=== PATIENT | female | born 1935 | race Caucasian/White ===

== ENCOUNTER 2019-11-09 16:51 | Observation (INO) | payer MEDICARE, OTHER ==
[2019-11-09] MEDS ORDERED: Dexamethasone 10 MG/ML VIAL ONE (17:24)
--- NOTE | 2019-11-09 17:55 | RAD ---
XR Knee Rt 4 View STANDARD History: Knee pain Comparison: Radiograph August 2018 Findings: Moderate to large joint effusion, similar. No acute displaced fracture or malalignment. Hig h-grade medial compartment degenerative change with sclerosis, osteophyte formation and joint space narrowing. Moderate lateral and patellofemoral compartment degenerative changes. Multiple soft tissue calcifications around the knee. Impression: Moderate joint effusion without acute displaced fracture or malalignment may be reactive from the degenerative change.
--- NOTE | 2019-11-09 17:56 | RAD ---
XR Knee Lt 4 View STANDARD History: Pain Comparison: None. Findings: Severe medial compartment degenerative change with sclerosis and articular surface remodeli ng. Mild chondrocalcinosis of the menisci. No significant joint effusion. Extensive vascular calcifications. Impression: Severe medial compartment degenerative change. Nonemergent arthroplasty evaluation recomm ended.
--- NOTE | 2019-11-09 17:58 | RAD ---
XR Pelvis AP STANDARD History: Pain Comparison: None. Findings: SI joints are not widened. The femoral heads and necks are intact as well as the intertroch anteric regions. Obturator rings are intact. Moderate degenerative change lower lumbar spine. 4 mm round calcification projecting over the right lower quadrant of the abdomen may reflect a phlebo lith. Impression: No acute osseous abnormality.
[2019-11-09] MEDS ORDERED: HYDROcodone/Acetaminophen 5/325 mg Tablet ONE (18:51)
[2019-11-09] MEDS ORDERED: Lorazepam 1 MG TAB ONE (19:16)
[2019-11-09] MEDS ORDERED: Lorazepam 2 MG/ML VIAL ONE (19:31)
[2019-11-09] MEDS ORDERED: HYDROcodone/Acetaminophen 7.5/325 mg Tablet PO PRN (20:25)
[2019-11-09 20:53] LABS: #Eosinphils 0.1 thou/uL (0.0-0.7); #Lymphocytes 0.5 thou/uL (1.20-3.40); #Monocytes 0.2 thou/uL (0.11-0.59); #Neutrophils 8.2 thou/uL (1.40-6.50); %Basophils 0.4 % (0.0-1.0); %Eosinophils 0.9 % (0.0-10.0); %Lymphocytes 5.5 % (21.0-51.0); %Neutrophils 91.2 % (42.0-75.0); Hemoglobin 12.8 g/dL (12.0-16.0); Mean Corpuscular HGB CONC 31.1 g/dL (32.0-36.0); Mean Corpuscular Hemoglobin 26.8 pg (27.0-31.0); Mean Corpuscular Volume 86.1 fL (78.0-98.0); Mean Platelet Volume 8.9 fL (7.4-10.4); Platelet Count 392 thou/uL (130-400); RBC Distribution Width 15.2 % (11.5-14.5); Red Blood Cell (RBC) Count 4.79 mill/uL (4.20-5.40)
[2019-11-09 21:16] LABS: ALT (SGPT) 7 U/L (8-55); AST (SGOT) 14 U/L (5-34); Albumin 3.2 g/dL (3.4-4.8); Alkaline Phosphatase 110 U/L (40-110); Anion Gap 19 mmol/L (10-20); BUN (Urea Nitrogen) 31 mg/dL (9.8-20.1); Bilirubin, Total 1.1 mg/dL (0.2-1.2); Calc. Creatinine Clearance 0 mL/min (70-130); Calcium 9.8 mg/dL (7.8-10.44); Carbon Dioxide 20 mmol/L (23-31); Chloride 105 mmol/L (98-107); Estimated GFR-MDRD 29; Globulin 3.3 g/dL (2.4-3.5); Glucose 113 mg/dL (83-110); Potassium 3.5 mmol/L (3.5-5.1); Protein, Total 6.5 g/dL (6.0-8.3); Sodium 140 mmol/L (136-145)
--- NOTE | 2019-11-09 21:20 | HP ---
REASON FOR ADMISSION: Bilateral knee pain. HISTORY OF PRESENT ILLNESS: This is an 84-year-old female patient, who resides in the memory unit. She does have the diagnosis of osteoarthritis and rheumatoid arthritis, does receive Remicade injections on a regular basis, but since the coronavirus started, she has been on lock-down and unable to receive that medication. She was transitioned to an oral agent, but that oral agent caused her to have very low appetite. A week ago, she was taken off that, but that resulted in flare up of her joint pain. She is presenting today brought by her family members with severe pain involving her knees and her back with general muscle pain all over her body, the patient is demented. I am obtaining my information from her daughter, who is at bedside. PAST MEDICAL HISTORY: 1. Dementia. 2. Osteoarthritis. 3. Rheumatoid arthritis. 4. Hypothyroidism. 5. High blood pressure. 6. Anxiety. 7. High cholesterol. 8. Neuropathy. 9. TIA. 10. Osteomyelitis. PAST SURGICAL HISTORY: 1. Tonsillectomy. 2. Appendectomy. 3. Tubal ligation. 4. Cataract surgery. SOCIAL HISTORY: She does not smoke. She does not drink alcohol. ALLERGIES: SULFA. REVIEW OF SYSTEMS: All systems reviewed, found to be negative. PHYSICAL EXAMINATION: GENERAL: She is awake, but confused. She does complain of pain. VITAL SIGNS: Her blood pressure is 127/83, pulse of 92, respiratory rate of 22, saturating 100% on room air. HEENT: Head is nontraumatic, normocephalic. Pupils are equal and reactive. Extraocular movements are intact. Nonicteric sclerae. Well injected conjunctivae. Oral mucosa normal. Nasal mucosa normal. NECK: Supple. No adenopathy. No murmur. Thyroid is not palpable. Trachea is midline. No supraclavicular adenopathy. HEART: S1, S2 regular. No murmur. No gallops. No friction rubs. No displacement of PMI. LUNGS: Clear to auscultation bilaterally. No wheezes, rhonchi, or crackles. ABDOMEN: Bowel sounds are positive. Nontender abdomen. No hepatosplenomegaly. EXTREMITIES: No lower extremity edema. No cyanosis. Examination of her joint revealed swollen right knee. It is warm to touch. The left knee is swollen as well, but lesser extent. LABORATORY DATA: Blood work is still pending. IMAGING: Pelvic x-ray shows no abnormality. Left knee x-ray show degenerative changes. Right knee x-ray shows moderate joint effusion. ASSESSMENT AND PLAN: This is an 84-year-old female patient presenting with worsening of her rheumatoid arthritis. She is being admitted for pain control, also possibly Remicade infusion if we are able to provide that. Musculoskeletal; the patient will be on a pain control regimen consisted of [place]. I am awaiting for her labs to come back. I might try her on Toradol. Her daughter was a bit anxious about her mom receiving morphine. She had a bad experience with her father receiving morphine. I explained her that morphine does have side effects, but it could be one of the better options to control her mom's pain. For her hypothyroidism, continue with her levothyroxine. For high blood pressure, continue with her home medication and we will provide her with as needed blood pressure control. For DVT prophylaxis, she will be on SCDs and Lovenox. I did discuss with the family, the daughter and her brother, who was listening over the phone about the code status of their mother and they wishes her to be a full code. Job ID: [id number]
[2019-11-10 00:10] VITALS: BMI 24.7
[2019-11-10] MEDS: Sodium Chloride 0.9% 1,000 ML IV SCH ×2 (03:51→18:03)
[2019-11-10] MEDS: Levothyroxine Sodium 125 MCG TAB PO SCH (05:45)
[2019-11-10] MEDS: Trospium 20 MG TAB PO SCH (08:42)
[2019-11-10] MEDS: Calcium Carbonate 600 MG + Vit D TAB PO SCH (08:42)
[2019-11-10] MEDS: Famotidine 20 MG TAB PO SCH (08:42)
[2019-11-10] MEDS: Enoxaparin Sodium 30 MG/0.3 ML SYRINGE SC SCH (08:42)
[2019-11-10] MEDS: Aspirin 81 mg Enteric Coated Tablet PO SCH (08:43)
[2019-11-10] MEDS: Amlodipine 10 MG TAB PO SCH (08:43)
[2019-11-10] MEDS: Mirtazapine 15 MG TAB PO SCH (08:43)
--- NOTE | 2019-11-10 10:00 | PDOC.HOSPP ---
- Subjective Encounter Date: 11/10/19 Encounter Time: 09:58 Subjective: alert, calm, oriented to person - Objective Vital Signs & Weight: Vital Signs (12 hours) Temp Pulse Resp BP BP BP Pulse Ox 11/10/19 07:42 97.2 F L 87 18 168/97 H 97 11/10/19 04:50 97.3 F L 84 18 135/80 97 11/10/19 00:45 97.7 F 67 20 112/70 95 11/09/19 22:26 98.1 F 58 L 18 107/80 94 L Weight Weight 135 lb Result Diagrams: 11/09/19 20:36 11/10/19 11:03 Hospitalist ROS - Medication Medications: Active Medications Generic Name Dose Route Start Last Admin Trade Name Freq PRN Reason Stop Dose Admin Amlodipine Besylate 10 mg 11/10/19 09:00 11/10/19 08:43 Amlodipine 10 Mg Tab PO 10 mg DAILY DAIJA Administration Aspirin 81 mg 11/10/19 09:00 11/10/19 08:43 Aspirin 81 Mg Enteric Coated Tablet PO 81 mg DAILY DAIJA Administration Calcium/Vitamin D 1 tab 11/10/19 09:00 11/10/19 08:42 Calcium Carbonate 600 Mg + Vit D Tab PO 1 tab DAILY DAIJA Administration Enoxaparin Sodium 30 mg 11/10/19 09:00 11/10/19 08:42 Enoxaparin Sodium 30 Mg/0.3 Ml Syringe SC 30 mg 0900 DAIJA Administration Famotidine 10 mg 11/10/19 09:00 11/10/19 08:42 Famotidine 20 Mg Tab PO 10 mg DAILY DAIJA Administration Sodium Chloride 1,000 mls @ 75 mls/hr 11/10/19 03:15 11/10/19 03:51 Normal Saline 0.9% IV 1,000 mls .[id number] DAIJA Administration Levothyroxine Sodium 125 mcg 11/10/19 06:00 11/10/19 05:45 Levothyroxine Sodium 125 Mcg Tab PO 125 mcg 0600 DAIJA Administration Memantine 10 mg 11/10/19 09:00 11/10/19 08:43 Memantine Hcl 10 Mg Tab PO 10 mg DAILY DAIJA Administration Mirtazapine 15 mg 11/10/19 09:00 11/10/19 08:43 Mirtazapine 15 Mg Tab PO 15 mg DAILY DAIJA Administration Trospium 20 mg 11/10/19 09:00 11/10/19 08:42 Trospium 20 Mg Tab PO 20 mg DAILY DAIJA Administration - Exam General Appearance: awake alert Neck: no JVD Heart: RRR Respiratory: CTAB Gastrointestinal: soft, normal bowel sounds Extremities: no edema Hosp A/P (1) Effusion of left knee joint Code(s): M25.462 - EFFUSION, LEFT KNEE Status: Acute (2) Rheumatoid arthritis flare Code(s): M06.9 - RHEUMATOID ARTHRITIS, UNSPECIFIED Status: Acute (3) Alzheimer's dementia Code(s): G30.9 - ALZHEIMER'S DISEASE, UNSPECIFIED; F02.80 - DEMENTIA IN OTH DISEASES CLASSD ELSWHR W/O BEHAVRL DISTURB Status: Acute Qualifiers: Alzheimer's disease onset: late-onset Dementia behavioral disturbance: without behavioral disturbance Qualified Code(s): G30.1 - Alzheimer's disease with late onset; F02.80 - Dementia in other diseases classified elsewhere without behavioral disturbance (4) CKD (chronic kidney disease) stage 3, GFR 30-59 ml/min Code(s): N18.3 - CHRONIC KIDNEY DISEASE, STAGE 3 (MODERATE) Status: Acute - Plan will call her orthopedic surgeon and combine operator bilateral knee injections with depo-medrolplanned for today
[2019-11-10 11:39] LABS: Anion Gap 14 mmol/L (10-20); BUN (Urea Nitrogen) 34 mg/dL (9.8-20.1); Calc. Creatinine Clearance 29 mL/min (70-130); Carbon Dioxide 22 mmol/L (23-31); Chloride 106 mmol/L (98-107); Estimated GFR-MDRD 35; Glucose 227 mg/dL (83-110); Potassium 3.5 mmol/L (3.5-5.1); Sodium 138 mmol/L (136-145)
[2019-11-10 13:28] LABS: SARS-CoV-2 MS2 Positive; SARS-CoV-2 N Gene Negative; SARS-CoV-2 S Gene Negative; SARS-CoV-2 by NAA Not Detected (NotDetected); SARS-CoV-2 orf1ab Negative
[2019-11-10] MEDS ORDERED: Lidocaine 1% (PF) 30 ML VIAL FS SCH ×2 (13:45→14:15)
[2019-11-10] MEDS ORDERED: Melatonin 3 MG TAB PO PRN (20:29)
[2019-11-10] MEDS ORDERED: ALPRAZolam 0.5 MG TAB PO SCH (20:30)
[2019-11-10] MEDS ORDERED: Donepezil HCl 10 MG TAB PO SCH (21:00)
[2019-11-10] MEDS ORDERED: Simvastatin 10 MG TAB PO SCH (21:00)
[2019-11-11] MEDS: Sodium Chloride 0.9% 1,000 ML IV SCH (05:08)
[2019-11-11] MEDS: Levothyroxine Sodium 125 MCG TAB PO SCH (05:08)
[2019-11-11 06:04] LABS: Anion Gap 13 mmol/L (10-20); BUN (Urea Nitrogen) 29 mg/dL (9.8-20.1); Calc. Creatinine Clearance 36 mL/min (70-130); Calcium 8.8 mg/dL (7.8-10.44); Carbon Dioxide 19 mmol/L (23-31); Chloride 108 mmol/L (98-107); Estimated GFR-MDRD 45; Glucose 155 mg/dL (83-110); Potassium 3.8 mmol/L (3.5-5.1); Sodium 136 mmol/L (136-145)
[2019-11-11 07:46] VITALS: BP 121/71; TEMP 97.5
[2019-11-11] MEDS: Aspirin 81 mg Enteric Coated Tablet PO SCH (09:47)
[2019-11-11] MEDS: Calcium Carbonate 600 MG + Vit D TAB PO SCH (09:48)
[2019-11-11] MEDS: Mirtazapine 15 MG TAB PO SCH (09:48)
[2019-11-11] MEDS: Trospium 20 MG TAB PO SCH (09:48)
[2019-11-11] MEDS: Famotidine 20 MG TAB PO SCH (09:48)
[2019-11-11] MEDS: Enoxaparin Sodium 30 MG/0.3 ML SYRINGE SC SCH (09:49)
[2019-11-11] MEDS: Amlodipine 10 MG TAB PO SCH (09:49)
[2019-11-11] MEDS ORDERED: Acetaminophen 500 MG TAB PO SCH (12:00)
--- NOTE | 2019-11-11 16:35 | CON ---
DATE OF CONSULTATION: 11/10/2019 REASON FOR CONSULTATION: Bilateral knee pain. HISTORY OF PRESENT ILLNESS: The patient is a pleasant 84-year-old female, who currently is residing in the Memory Care Unit at [facility]. She has known osteoarthritis of bilateral knees as well as rheumatoid arthritis. Since the current pandemic, she has been unable to leave her facility for her routine care for osteoarthritis and rheumatoid medications. Over the last week or so, she has had decrease in appetite as well as decrease in mobilization. She had presented to the ER due to severe pain involving both of her knees and back with general muscle pain all over body. There is some baseline confusion and dementia with the patient. Consultation of orthopedic Surgery for evaluation and treatment of bilateral knee OA. PAST MEDICAL HISTORY: 1. Dementia. 2. Osteoarthritis. 3. Rheumatoid arthritis. 4. Hypothyroidism. 5. Hypertension. 6. Anxiety. 7. Cholesterolemia. 8. TIA. PAST SURGICAL HISTORY: 1. Tonsillectomy. 2. Appendectomy. 3. Tubal ligation. 4. Cataract surgery. SOCIAL HISTORY: Does not smoke, does not drink alcohol. Resides in Memory Care Facility. ALLERGIES: SULFA. REVIEW OF SYSTEMS: Twelve-point review obtained and negative except for those items stated in HPI. PHYSICAL EXAMINATION: GENERAL: She is awake, but has baseline confusion, not remembering which hospital she is at and for what reason. She does complain of pain to bilateral lower extremities. VITAL SIGNS: Stable, afebrile. HEENT: Head; normocephalic, atraumatic. Pupils are equal and reactive. NECK: Supple. HEART: Shows regular rate and rhythm. Lungs: Nonlabored breathing. ABDOMEN: Soft and nontender. EXTREMITIES: The patient has pain with motion of bilateral legs, particularly at the knees. There is mild palpable effusion of both right and left knees. She has somewhat limited motion from about 5 to 90 degrees of bilateral knees due to crepitus and pain. Tenderness to palpation on the medial and lateral joint lines of both knees. Notable crepitus with one quadrant patellar glide of each patella. There is mild generalized edema distally to bilateral lower extremities. However, there is palpable DP pulse with brisk capillary refill throughout all feet and toes. NEUROLOGIC: No focal neurologic deficits. IMAGING: Bilateral knee x-ray show no acute fracture, advanced osteoarthritis of bilateral knees. ASSESSMENT: An 84-year-old female presenting with worsening rheumatoid arthritis and osteoarthritis of bilateral knees. PLAN: While the patient is in the hospital, we will trial cortisone injections into bilateral knees for symptom relief. We counseled the patient and family on risks and benefits of these injections as well as other treatment options if she were to continue to have discomfort. The plan would be for her to return to facility, where she can work on stretching, strengthening, and gait training. Certainly, she would need some assistive devices to mobilize. If the pain in her knees persist, then consideration for viscosupplementation injections on an outpatient basis would be reasonable. All questions and concerns were answered, the patient can follow up in my office as needed. Job ID: [id number]
--- NOTE | 2019-11-11 16:44 | OP ---
DATE OF PROCEDURE: 11/10/2019 PREOPERATIVE DIAGNOSES: 1. Left knee primary osteoarthritis. 2. Right knee primary osteoarthritis. POSTPROCEDURE DIAGNOSES: 1. Left knee primary osteoarthritis. 2. Right knee primary osteoarthritis. PROCEDURES PERFORMED: 1. Intra-articular injection, left knee. 2. Intra-articular injection, right knee. DESCRIPTION OF PROCEDURE: After discussion of risks and benefits of procedure, appropriate verbal consent was obtained from the patient's family. The right knee was marked at superolateral portal and cleaned with a Betadine swab. A 22-gauge needle was inserted into the suprapatellar pouch, where 80 mg of Depo-Medrol and 4 mL of 1% lidocaine were injected intraarticularly without difficulty. The needle was withdrawn, and Band-Aid was applied. The superolateral portal of the left knee was then marked and cleaned with a Betadine swab. A 22-gauge needle was inserted into the suprapatellar pouch, where 80 mg of Depo-Medrol and 4 mL of 1% lidocaine were injected without difficulty. The needle was withdrawn, and a Band-Aid was applied. Kip wraps were then applied to bilateral knees. The patient tolerated well. Job ID: [id number]
--- NOTE | 2019-11-12 12:24 | DIS ---
DATE OF ADMISSION: 11/09/2019 DATE OF DISCHARGE: 11/11/2019 PRIMARY CARE PROVIDER: Lashell Agustin MD. DISPOSITION: Discharged back to [facility]. FINAL DIAGNOSES: 1. Acute effusion and pain in left knee. 2. Alzheimer's dementia. 3. Chronic kidney disease stage 3. 4. Rheumatoid arthritis. DISCHARGE MEDICINES: 1. Vitamin D, C with calcium carbonate. 2. Cozaar 100 mg a day. 3. Famotidine 10 mg a day. 4. Zocor 10 mg a day. 5. Mirtazapine 15 mg a day. 6. VESIcare 10 mg a day. 7. Amlodipine 10 mg a day. 8. Aricept 10 mg a day. 9. Memantine 10 mg a day. 10. Levothyroxine 125 mcg a day. 11. Aspirin 81 mg a day. ALLERGIES: SULFONAMIDES. CODE STATUS: Full resuscitation. PENDING AT TIME OF DISCHARGE: Nothing. DIET: As tolerated. CONSULTATIONS: Giovanny Cintron MD PROCEDURES: Bilateral bedside knee injections with Depo-Medrol by Dr. Cintron. HOSPITAL COURSE: The patient admitted with acute pain, found to have an effusion in her left knee. Her laboratory results were not remarkable. Hemoglobin 12.8, white count 9.3, and platelet count 392,000. She did have elevated creatinine of 1.67 range to 1.15. Lytes were balanced. Blood sugar was unremarkable, 113. COVID was negative. She was noted to have an effusion on radiographic studies of her knees. Dr. Cintron was consulted. Bilateral knee injections were done. The patient is doing well this morning. Neither knee is tender. I have discussed with her information receptionist at [facility] about her Remicade and osteoporosis infusions, which have been unavailable since early April due to the COVID crisis. They were able to do these as an outpatient at this time. These will be arranged. The facility, [facility], that she is going to will be notified. She will be brought to the infusion center at [facility] to receive the infusion. The patient is doing well at the time of discharge, alert, and comfortable. Cardiorespiratory exam unremarkable. I have discussed this at length with her daughter, who has been at bedside. She is very appreciative of the things that have been arranged for her mother, as this is the first time she is seeing her mother since April due to COVID. She has been distressed with the inability to get things done. As I said before, she will be followed up at the facility by her PCP. She will be followed up at [facility]. Job ID: [id number]
== END 2019-11-11 11:22 | disposition home or self-care (01) ==
LOC: ERS 16:51 → T4-B 19:48
PROVIDERS: ADMIT Internal Medicine; ATTEND Internal Medicine
PROC: 0S9D3ZZ Drainage of Left Knee Joint, Percutaneous Approach (ICD-10-PCS; principal; 2019-11-10)
PROC: 0S9C3ZZ Drainage of Right Knee Joint, Percutaneous Approach (ICD-10-PCS; 2019-11-10)
DX: M17.0 Bilateral primary osteoarthritis of knee (principal); G30.9 Alzheimer's disease, unspecified; F02.80 Dementia in other diseases classified elsewhere, unspecified severity, without behavioral disturbance, psychotic disturbance, mood disturbance, and anxiety; I12.0 Hypertensive chronic kidney disease with stage 5 chronic kidney disease or end stage renal disease; N18.6 End stage renal disease; M06.9 Rheumatoid arthritis, unspecified; E03.9 Hypothyroidism, unspecified; Z79.82 Long term (current) use of aspirin; Z79.899 Other long term (current) drug therapy; Z88.2 Allergy status to sulfonamides; Z86.73 Personal history of transient ischemic attack (TIA), and cerebral infarction without residual deficits; Z20.828 Contact with and (suspected) exposure to other viral communicable diseases
CPT/HCPCS: 20610; 72170; 73564 ×2; 80048 ×2; 80053; 85025; 96372; 96374; 99284; U0003; 36415; 51798; 87635; 96361; G0378; J1100; J1650; J2060

== ENCOUNTER 2022-04-07 10:29 | Inpatient (IN) | payer MEDICARE ==
[2022-04-07] MEDS ORDERED: Morphine 4 MG/ML VIAL ONE (11:39)
[2022-04-07] MEDS ORDERED: Ondansetron PF 4 MG/2 ML Vial ONE (11:39)
[2022-04-07 11:58] LABS: #Basophils 0.1 thou/uL (0.0-0.2); #Eosinphils 0.4 thou/uL (0.0-0.7); #Lymphocytes 1.5 thou/uL (1.20-3.40); #Monocytes 0.6 thou/uL (0.11-0.59); #Neutrophils 8.1 thou/uL (1.40-6.50); %Basophils 0.6 % (0.0-1.0); %Eosinophils 3.3 % (0.0-10.0); %Lymphocytes 14.4 % (21.0-51.0); %Monocytes 5.6 % (0.0-10.0); %Neutrophils 76.1 % (42.0-75.0); Hemoglobin 12.9 g/dL (12.0-16.0); Mean Corpuscular HGB CONC 32.4 g/dL (32.0-36.0); Mean Corpuscular Hemoglobin 28.8 pg (27.0-31.0); Mean Corpuscular Volume 88.6 fl (78.0-98.0); Mean Platelet Volume 7.7 fL (7.4-10.4); Platelet Count 737 10x3/uL (130-400); RBC Distribution Width 14.4 % (11.5-14.5); White Blood Cell (WBC) Count 10.6 10x3/uL (4.8-10.8)
[2022-04-07 12:21] LABS: Anion Gap 16 mmol/L (10-20); BUN (Urea Nitrogen) 31 mg/dL (9.8-20.1); Bilirubin, Total 0.6 mg/dL (0.2-1.2); Calc. Creatinine Clearance 0 mL/min (70-130); Calcium 10.2 mg/dL (7.8-10.44); Carbon Dioxide 23 mmol/L (23-31); Chloride 103 mmol/L (98-107); Estimated GFR 55; Glucose 102 mg/dL (83-110); Potassium 4.5 mmol/L (3.5-5.1); Protein, Total 7.6 g/dL (5.8-8.1); Sodium 137 mmol/L (136-145)
[2022-04-07 12:22] LABS: ALT (SGPT) 8 U/L (8-55); AST (SGOT) 19 U/L (5-34); Albumin 3.1 g/dL (3.4-4.8); Alkaline Phosphatase 98 U/L (40-110); Globulin 4.5 g/dL (2.4-3.5); Magnesium 2.1 mg/dL (1.6-2.6)
[2022-04-07] MEDS ORDERED: Iopamidol-370 76% 500 ML 1 ML ONE (13:56)
[2022-04-07 16:00] LABS: Bacteria/HPF 2+ HPF (None Seen); Bilirubin Negative (Negative); Blood, Urine Negative (Negative); Clarity Turbid (Clear); Glucose, Urine (Dipstick) Normal (Negative); Ketone, Urine 10 mg/dL (Negative); Leukocyte 500 Leu/uL (Negative); Nitrite Negative (Negative); Protein, Urine (Dipstick) 20 mg/dL (Neg-Trace); RBC/HPF 0-3 HPF (0-3); Specific Gravity, Urine 1.029 (1.002-1.036); Squamous Epithelial 0-3 HPF (0-3); Urobilinogen 6 mg/dL (Less than 2); WBC/HPF Greater than 50 HPF (0-3); pH, Urine 5.5 (5.0-9.0)
[2022-04-07] MEDS ORDERED: cefTRIAXone\\ROCEPHIN 2 GM VIAL ONE (18:49)
[2022-04-07] MEDS ORDERED: Acetaminophen 325 MG TAB PO PRN (20:00)
[2022-04-07] MEDS ORDERED: Ondansetron ODT 4 MG TAB SL PRN (20:00)
[2022-04-07] MEDS ORDERED: Ondansetron PF 4 MG/2 ML Vial IVP PRN (20:00)
[2022-04-07] MEDS ORDERED: Morphine 2 MG/ML VIAL SLOW IVP PRN (21:07)
[2022-04-07] MEDS: Ketorolac Tromethamine 30 MG/ML VIAL IVP PRN (22:17)
[2022-04-07] MEDS: Sodium Chloride 0.9% 1,000 ML IV SCH (22:17)
[2022-04-07 22:43] VITALS: BMI 20.2
[2022-04-07] MEDS ORDERED: Mirtazapine 15 MG TAB PO SCH (23:00)
[2022-04-07] MEDS ORDERED: Donepezil HCl 10 MG TAB PO SCH (23:00)
[2022-04-07] MEDS ORDERED: Citalopram 10 MG TAB PO SCH (23:00)
[2022-04-07] MEDS ORDERED: Atorvastatin Calcium 10 MG TAB PO SCH (23:00)
[2022-04-08] MEDS: Levothyroxine Sodium 125 MCG TAB PO SCH (05:16)
[2022-04-08] MEDS: Trospium 20 MG TAB PO SCH ×2 (09:24→20:53)
[2022-04-08] MEDS: Losartan 25 MG TAB PO SCH (09:24)
[2022-04-08] MEDS: Amlodipine 10 MG TAB PO SCH (09:25)
[2022-04-08] MEDS: Loratadine 10 MG TAB PO SCH (09:25)
[2022-04-08] MEDS: Aspirin 81 mg Enteric Coated Tablet PO SCH (09:25)
[2022-04-08] MEDS: Acetaminophen 500 MG TAB PO PRN (09:35)
[2022-04-08] MEDS: Sodium Chloride 0.9% 1,000 ML IV SCH ×2 (10:38→20:54)
[2022-04-08] MEDS: cefTRIAXone\\ROCEPHIN 1 GM in Sodium Chloride 0.9% 100 ML IVPB SCH (17:24)
[2022-04-08] MEDS: Atorvastatin Calcium 10 MG TAB PO SCH (20:53)
[2022-04-08] MEDS: Donepezil HCl 10 MG TAB PO SCH (20:53)
[2022-04-08] MEDS: Cyproheptadine 4 MG TAB PO SCH (20:54)
[2022-04-08] MEDS: Citalopram 10 MG TAB PO SCH (20:54)
[2022-04-08] MEDS: Mirtazapine 15 MG TAB PO SCH (20:54)
[2022-04-09] MEDS: Levothyroxine Sodium 125 MCG TAB PO SCH (05:53)
[2022-04-09 07:43] LABS: #Eosinphils 0.4 thou/uL (0.0-0.7); #Lymphocytes 1.7 thou/uL (1.20-3.40); #Monocytes 0.5 thou/uL (0.11-0.59); #Neutrophils 4.8 thou/uL (1.40-6.50); %Basophils 0.7 % (0.0-1.0); %Eosinophils 5.4 % (0.0-10.0); %Lymphocytes 23.2 % (21.0-51.0); %Monocytes 6.1 % (0.0-10.0); %Neutrophils 64.7 % (42.0-75.0); Hemoglobin 10.1 g/dL (12.0-16.0); Mean Corpuscular Hemoglobin 27.9 pg (27.0-31.0); Mean Corpuscular Volume 90.2 fl (78.0-98.0); Mean Platelet Volume 7.5 fL (7.4-10.4); Platelet Count 582 10x3/uL (130-400); RBC Distribution Width 14.4 % (11.5-14.5); Red Blood Cell (RBC) Count 3.62 mill/uL (4.20-5.40); White Blood Cell (WBC) Count 7.4 10x3/uL (4.8-10.8)
[2022-04-09 08:23] LABS: Anion Gap 8 mmol/L (10-20); BUN (Urea Nitrogen) 23 mg/dL (9.8-20.1); Calc. Creatinine Clearance 39 mL/min (70-130); Calcium 8.5 mg/dL (7.8-10.44); Carbon Dioxide 23 mmol/L (23-31); Chloride 110 mmol/L (98-107); Estimated GFR 71; Glucose 75 mg/dL (83-110); Potassium 3.8 mmol/L (3.5-5.1); Sodium 137 mmol/L (136-145)
[2022-04-09] MEDS: Aspirin 81 mg Enteric Coated Tablet PO SCH (10:59)
[2022-04-09] MEDS: Amlodipine 10 MG TAB PO SCH (11:01)
[2022-04-09] MEDS: Loratadine 10 MG TAB PO SCH (11:01)
[2022-04-09] MEDS: Trospium 20 MG TAB PO SCH ×2 (11:02→21:26)
[2022-04-09] MEDS: Cyproheptadine 4 MG TAB PO SCH ×2 (11:07→21:25)
[2022-04-09] MEDS: Losartan 25 MG TAB PO SCH (11:07)
[2022-04-09] MEDS: Acetaminophen 500 MG TAB PO PRN (14:55)
[2022-04-09] MEDS: Sodium Chloride 0.9% 1,000 ML IV SCH ×2 (14:55→15:04)
[2022-04-09] MEDS ORDERED: Ondansetron PF 4 MG/2 ML Vial IVP PRN (15:57)
[2022-04-09] MEDS ORDERED: Ondansetron PF 4 MG/2 ML Vial IVP SCH (16:00)
[2022-04-09] MEDS: cefTRIAXone\\ROCEPHIN 1 GM in Sodium Chloride 0.9% 100 ML IVPB SCH (17:59)
[2022-04-09] MEDS ORDERED: Sodium Chloride 0.9% 500 ML IV SCH (19:45)
[2022-04-09] MEDS: Atorvastatin Calcium 10 MG TAB PO SCH (21:25)
[2022-04-09] MEDS: Citalopram 10 MG TAB PO SCH (21:25)
[2022-04-09] MEDS: Donepezil HCl 10 MG TAB PO SCH (21:25)
[2022-04-09] MEDS: Mirtazapine 15 MG TAB PO SCH (21:26)
[2022-04-10] MEDS: Sodium Chloride 0.9% 1,000 ML IV SCH ×2 (04:47→20:46)
[2022-04-10] MEDS: Levothyroxine Sodium 125 MCG TAB PO SCH (05:12)
[2022-04-10 06:41] LABS: #Eosinphils 0.4 thou/uL (0.0-0.7); #Lymphocytes 1.5 thou/uL (1.20-3.40); #Monocytes 0.5 thou/uL (0.11-0.59); #Neutrophils 4.1 thou/uL (1.40-6.50); %Basophils 0.3 % (0.0-1.0); %Eosinophils 5.6 % (0.0-10.0); %Lymphocytes 23.5 % (21.0-51.0); %Monocytes 7.2 % (0.0-10.0); %Neutrophils 63.4 % (42.0-75.0); Hemoglobin 10.5 g/dL (12.0-16.0); Mean Corpuscular HGB CONC 31.3 g/dL (32.0-36.0); Mean Corpuscular Volume 89.6 fl (78.0-98.0); Mean Platelet Volume 7.9 fL (7.4-10.4); Platelet Count 541 10x3/uL (130-400); RBC Distribution Width 14.4 % (11.5-14.5); Red Blood Cell (RBC) Count 3.75 mill/uL (4.20-5.40); White Blood Cell (WBC) Count 6.5 10x3/uL (4.8-10.8)
[2022-04-10] MEDS: Trospium 20 MG TAB PO SCH ×2 (09:25→20:44)
[2022-04-10] MEDS: Cyproheptadine 4 MG TAB PO SCH ×2 (09:25→20:44)
[2022-04-10] MEDS: Losartan 25 MG TAB PO SCH (09:26)
[2022-04-10] MEDS: Aspirin 81 mg Enteric Coated Tablet PO SCH (09:26)
[2022-04-10] MEDS: Amlodipine 10 MG TAB PO SCH (09:26)
[2022-04-10] MEDS: Loratadine 10 MG TAB PO SCH (09:26)
[2022-04-10] MEDS: Acetaminophen 500 MG TAB PO PRN ×2 (09:26→20:47)
[2022-04-10] MEDS: cefTRIAXone\\ROCEPHIN 1 GM in Sodium Chloride 0.9% 100 ML IVPB SCH (16:48)
[2022-04-10] MEDS: Donepezil HCl 10 MG TAB PO SCH (20:44)
[2022-04-10] MEDS: Atorvastatin Calcium 10 MG TAB PO SCH (20:45)
[2022-04-10] MEDS: Mirtazapine 15 MG TAB PO SCH (20:45)
[2022-04-10] MEDS: Citalopram 10 MG TAB PO SCH (20:45)
[2022-04-11] MEDS: Levothyroxine Sodium 125 MCG TAB PO SCH (05:36)
[2022-04-11] MEDS: Amlodipine 10 MG TAB PO SCH ×2 (08:46→09:00)
[2022-04-11] MEDS: Aspirin 81 mg Enteric Coated Tablet PO SCH ×2 (08:46→09:00)
[2022-04-11] MEDS: Losartan 25 MG TAB PO SCH ×2 (08:47→09:02)
[2022-04-11] MEDS: Cyproheptadine 4 MG TAB PO SCH ×3 (08:47→21:08)
[2022-04-11] MEDS: Loratadine 10 MG TAB PO SCH ×2 (08:47→09:02)
[2022-04-11] MEDS: Trospium 20 MG TAB PO SCH ×3 (08:47→21:08)
[2022-04-11] MEDS: Ondansetron ODT 4 MG TAB PO PRN ×2 (08:59→21:07)
[2022-04-11] MEDS ORDERED: Cefdinir 300 MG CAP PO SCH ×2 (09:30→21:00)
[2022-04-11] MEDS ORDERED: Saccharomyces boulardii 250 MG CAP PO SCH (11:30)
[2022-04-11] MEDS: Mirtazapine 15 MG TAB PO SCH (21:08)
[2022-04-11] MEDS: Donepezil HCl 10 MG TAB PO SCH (21:09)
[2022-04-11] MEDS: Atorvastatin Calcium 10 MG TAB PO SCH (21:09)
[2022-04-11] MEDS: Citalopram 10 MG TAB PO SCH (21:09)
[2022-04-11] MEDS: Sodium Chloride 0.9% 1,000 ML IV SCH (21:10)
[2022-04-11] MEDS: HYDROcodone/Acetaminophen 5/325 mg Tablet PO PRN (21:10)
[2022-04-12] MEDS: Vancomycin HCl 125 MG/5 ML (BATCHED) UDCUP PO SCH ×5 (01:31→23:43)
[2022-04-12] MEDS: Levothyroxine Sodium 125 MCG TAB PO SCH (05:57)
[2022-04-12] MEDS: Losartan 25 MG TAB PO SCH (09:24)
[2022-04-12] MEDS: Amlodipine 10 MG TAB PO SCH (09:25)
[2022-04-12] MEDS: Loratadine 10 MG TAB PO SCH (09:26)
[2022-04-12] MEDS: Cyproheptadine 4 MG TAB PO SCH ×2 (09:26→20:49)
[2022-04-12] MEDS: Aspirin 81 mg Enteric Coated Tablet PO SCH (09:26)
[2022-04-12] MEDS: Trospium 20 MG TAB PO SCH ×2 (09:26→20:49)
[2022-04-12] MEDS: Saccharomyces boulardii 250 MG CAP PO SCH (09:26)
[2022-04-12] MEDS: Mirtazapine 15 MG TAB PO SCH (20:50)
[2022-04-12] MEDS: Donepezil HCl 10 MG TAB PO SCH (20:50)
[2022-04-12] MEDS: Atorvastatin Calcium 10 MG TAB PO SCH (20:50)
[2022-04-12] MEDS: Citalopram 10 MG TAB PO SCH (20:50)
[2022-04-13] MEDS: Sodium Chloride 0.9% 1,000 ML IV SCH ×2 (01:17→12:42)
[2022-04-13] MEDS: HYDROcodone/Acetaminophen 5/325 mg Tablet PO PRN ×2 (06:02→18:34)
[2022-04-13] MEDS: Levothyroxine Sodium 125 MCG TAB PO SCH (06:02)
[2022-04-13] MEDS: Vancomycin HCl 125 MG/5 ML (BATCHED) UDCUP PO SCH ×3 (06:03→17:43)
[2022-04-13] MEDS: Cyproheptadine 4 MG TAB PO SCH ×2 (08:49→22:23)
[2022-04-13] MEDS: Trospium 20 MG TAB PO SCH ×2 (08:49→22:21)
[2022-04-13] MEDS: Aspirin 81 mg Enteric Coated Tablet PO SCH (08:49)
[2022-04-13] MEDS: Loratadine 10 MG TAB PO SCH (08:50)
[2022-04-13] MEDS: Saccharomyces boulardii 250 MG CAP PO SCH (08:50)
[2022-04-13] MEDS: Losartan 25 MG TAB PO SCH (12:39)
[2022-04-13] MEDS: Amlodipine 10 MG TAB PO SCH (12:39)
[2022-04-13] MEDS: Citalopram 10 MG TAB PO SCH (22:21)
[2022-04-13] MEDS: Mirtazapine 15 MG TAB PO SCH (22:22)
[2022-04-13] MEDS: Atorvastatin Calcium 10 MG TAB PO SCH (22:22)
[2022-04-13] MEDS: Donepezil HCl 10 MG TAB PO SCH (22:22)
[2022-04-13] MEDS: Ketorolac Tromethamine 30 MG/ML VIAL IVP PRN (22:24)
[2022-04-14] MEDS: Vancomycin HCl 125 MG/5 ML (BATCHED) UDCUP PO SCH ×5 (00:04→23:40)
[2022-04-14] MEDS: Sodium Chloride 0.9% 1,000 ML IV SCH ×2 (01:10→17:40)
[2022-04-14] MEDS: Levothyroxine Sodium 125 MCG TAB PO SCH (05:55)
[2022-04-14] MEDS: Trospium 20 MG TAB PO SCH ×2 (08:18→20:06)
[2022-04-14] MEDS: Aspirin 81 mg Enteric Coated Tablet PO SCH (08:18)
[2022-04-14] MEDS: Saccharomyces boulardii 250 MG CAP PO SCH (08:18)
[2022-04-14] MEDS: Loratadine 10 MG TAB PO SCH (08:18)
[2022-04-14] MEDS: Cyproheptadine 4 MG TAB PO SCH ×2 (08:18→20:06)
[2022-04-14] MEDS: Amlodipine 10 MG TAB PO SCH (08:19)
[2022-04-14] MEDS: Losartan 25 MG TAB PO SCH (08:19)
[2022-04-14] MEDS: Ketorolac Tromethamine 30 MG/ML VIAL IVP PRN (12:10)
[2022-04-14] MEDS ORDERED: Ketorolac Tromethamine 30 MG/ML VIAL IVP PRN (14:14)
[2022-04-14] MEDS ORDERED: Megestrol Acetate 40 MG TAB PO SCH (16:15)
[2022-04-14] MEDS: Mirtazapine 15 MG TAB PO SCH (20:06)
[2022-04-14] MEDS: Donepezil HCl 10 MG TAB PO SCH (20:07)
[2022-04-14] MEDS: Citalopram 10 MG TAB PO SCH (20:07)
[2022-04-14] MEDS: Atorvastatin Calcium 10 MG TAB PO SCH (20:07)
[2022-04-14] MEDS: HYDROcodone/Acetaminophen 5/325 mg Tablet PO PRN (20:18)
[2022-04-15] MEDS: Vancomycin HCl 125 MG/5 ML (BATCHED) UDCUP PO SCH ×4 (05:31→23:22)
[2022-04-15] MEDS: Levothyroxine Sodium 125 MCG TAB PO SCH (05:32)
[2022-04-15] MEDS: Cyproheptadine 4 MG TAB PO SCH ×2 (09:01→20:27)
[2022-04-15] MEDS: Saccharomyces boulardii 250 MG CAP PO SCH (09:01)
[2022-04-15] MEDS: Losartan 25 MG TAB PO SCH (09:01)
[2022-04-15] MEDS: Aspirin 81 mg Enteric Coated Tablet PO SCH (09:01)
[2022-04-15] MEDS: Loratadine 10 MG TAB PO SCH (09:01)
[2022-04-15] MEDS: Trospium 20 MG TAB PO SCH (09:01)
[2022-04-15] MEDS: Amlodipine 10 MG TAB PO SCH (09:01)
[2022-04-15] MEDS: Megestrol Acetate 40 MG TAB PO SCH ×2 (09:01→20:24)
[2022-04-15] MEDS: Sodium Chloride 0.9% 1,000 ML IV SCH (09:02)
[2022-04-15] MEDS ORDERED: Electrolyte Replacement Protocol 1 EACH FS SCH (09:15)
[2022-04-15 10:26] LABS: #Eosinphils 0.3 thou/uL (0.0-0.7); #Lymphocytes 1.5 thou/uL (1.20-3.40); #Monocytes 0.3 thou/uL (0.11-0.59); #Neutrophils 4.7 thou/uL (1.40-6.50); %Lymphocytes 21.4 % (21.0-51.0); %Monocytes 4.7 % (0.0-10.0); %Neutrophils 68.9 % (42.0-75.0); Hemoglobin 10.7 g/dL (12.0-16.0); Mean Corpuscular HGB CONC 31.3 g/dL (32.0-36.0); Mean Corpuscular Hemoglobin 27.9 pg (27.0-31.0); Mean Corpuscular Volume 89.3 fl (78.0-98.0); Platelet Count 418 10x3/uL (130-400); RBC Distribution Width 14.7 % (11.5-14.5); Red Blood Cell (RBC) Count 3.83 mill/uL (4.20-5.40); White Blood Cell (WBC) Count 6.8 10x3/uL (4.8-10.8)
[2022-04-15 10:29] LABS: ALT (SGPT) 12 U/L (8-55); AST (SGOT) 19 U/L (5-34); Albumin 2.2 g/dL (3.4-4.8); Alkaline Phosphatase 75 U/L (40-110); Anion Gap 11 mmol/L (10-20); BUN (Urea Nitrogen) 15 mg/dL (9.8-20.1); Bilirubin, Total 0.2 mg/dL (0.2-1.2); Calc. Creatinine Clearance 44 mL/min (70-130); Calcium 8.6 mg/dL (7.8-10.44); Carbon Dioxide 18 mmol/L (23-31); Chloride 114 mmol/L (98-107); Estimated GFR 80; Globulin 2.9 g/dL (2.4-3.5); Glucose 101 mg/dL (83-110); Magnesium 1.7 mg/dL (1.6-2.6); Phosphorus 2.8 mg/dL (2.3-4.7); Potassium 3.8 mmol/L (3.5-5.1); Protein, Total 5.1 g/dL (5.8-8.1); Sodium 139 mmol/L (136-145)
[2022-04-15] MEDS: HYDROcodone/Acetaminophen 5/325 mg Tablet PO PRN ×2 (11:58→23:22)
[2022-04-15] MEDS ORDERED: Magnesium 2 GM/50 ML(in water) 2 GM in Premix Bag 1 BAG IVPB SCH (13:00)
[2022-04-15] MEDS: Citalopram 10 MG TAB PO SCH (20:23)
[2022-04-15] MEDS: Donepezil HCl 10 MG TAB PO SCH (20:23)
[2022-04-15] MEDS: Atorvastatin Calcium 10 MG TAB PO SCH (20:24)
[2022-04-15] MEDS: Mirtazapine 15 MG TAB PO SCH (20:24)
[2022-04-16] MEDS: Vancomycin HCl 125 MG/5 ML (BATCHED) UDCUP PO SCH ×3 (05:21→17:25)
[2022-04-16] MEDS: Levothyroxine Sodium 125 MCG TAB PO SCH (05:21)
[2022-04-16] MEDS: Sodium Chloride 0.9% 1,000 ML IV SCH ×2 (05:22→21:49)
[2022-04-16] MEDS: Aspirin 81 mg Enteric Coated Tablet PO SCH (08:56)
[2022-04-16] MEDS: Losartan 25 MG TAB PO SCH (08:56)
[2022-04-16] MEDS: Cyproheptadine 4 MG TAB PO SCH ×2 (08:56→21:40)
[2022-04-16] MEDS: Amlodipine 5 MG TAB PO SCH (08:57)
[2022-04-16] MEDS: Loratadine 10 MG TAB PO SCH (08:57)
[2022-04-16] MEDS: Saccharomyces boulardii 250 MG CAP PO SCH (08:58)
[2022-04-16] MEDS: Megestrol Acetate 40 MG TAB PO SCH ×2 (08:58→21:40)
[2022-04-16] MEDS: Donepezil HCl 10 MG TAB PO SCH (21:39)
[2022-04-16] MEDS: Mirtazapine 15 MG TAB PO SCH (21:39)
[2022-04-16] MEDS: Citalopram 10 MG TAB PO SCH (21:40)
[2022-04-16] MEDS: Atorvastatin Calcium 10 MG TAB PO SCH (21:40)
[2022-04-17] MEDS: Vancomycin HCl 125 MG/5 ML (BATCHED) UDCUP PO SCH ×3 (00:27→12:44)
[2022-04-17] MEDS: Levothyroxine Sodium 125 MCG TAB PO SCH (05:57)
[2022-04-17 08:39] VITALS: BP 129/74; TEMP 98.3
[2022-04-17] MEDS: Saccharomyces boulardii 250 MG CAP PO SCH (09:15)
[2022-04-17] MEDS: Amlodipine 5 MG TAB PO SCH (09:15)
[2022-04-17] MEDS: Aspirin 81 mg Enteric Coated Tablet PO SCH (09:15)
[2022-04-17] MEDS: Megestrol Acetate 40 MG TAB PO SCH (09:16)
[2022-04-17] MEDS: Loratadine 10 MG TAB PO SCH (09:16)
[2022-04-17] MEDS: Losartan 25 MG TAB PO SCH (09:16)
[2022-04-17] MEDS: Cyproheptadine 4 MG TAB PO SCH (09:17)
== END 2022-04-17 14:19 | DRG 689 ==
LOC: ERS 10:29 → T4-A 18:25 → OBSVTOIN 04-08 13:02
PROVIDERS: ADMIT Family Medicine; ATTEND Internal Medicine
PROC: 0T9B70Z Drainage of Bladder with Drainage Device, Via Natural or Artificial Opening (ICD-10-PCS; principal; 2022-04-08)
DX: N39.0 Urinary tract infection, site not specified (principal); G92.8 Other toxic encephalopathy; M48.56XA Collapsed vertebra, not elsewhere classified, lumbar region, initial encounter for fracture; A04.72 Enterocolitis due to Clostridium difficile, not specified as recurrent; E44.0 Moderate protein-calorie malnutrition; G30.9 Alzheimer's disease, unspecified; F02.80 Dementia in other diseases classified elsewhere, unspecified severity, without behavioral disturbance, psychotic disturbance, mood disturbance, and anxiety; M06.9 Rheumatoid arthritis, unspecified; E78.5 Hyperlipidemia, unspecified; E03.9 Hypothyroidism, unspecified; M48.061 Spinal stenosis, lumbar region without neurogenic claudication; N18.30 Chronic kidney disease, stage 3 unspecified; E78.00 Pure hypercholesterolemia, unspecified; R33.9 Retention of urine, unspecified; F41.9 Anxiety disorder, unspecified; E86.0 Dehydration; I12.9 Hypertensive chronic kidney disease with stage 1 through stage 4 chronic kidney disease, or unspecified chronic kidney disease; D63.1 Anemia in chronic kidney disease; Z20.822 Contact with and (suspected) exposure to COVID-19; Z68.20 Body mass index [BMI] 20.0-20.9, adult; Z88.0 Allergy status to penicillin; Z88.2 Allergy status to sulfonamides; Z79.82 Long term (current) use of aspirin; Z79.899 Other long term (current) drug therapy; Z90.49 Acquired absence of other specified parts of digestive tract; Z98.890 Other specified postprocedural states; Z98.51 Tubal ligation status
CPT/HCPCS: 36415; 51702; 72148; 74177; 80048; 80053; 81003; 81015; 83735; 84100; 84443; 85025; 87086; 87324; 87449; 87811; 96374; 96375; G0378; J0696; J1885; J2270; J2405; J3475; J3490; J7030; J7050; Q0162; Q9967; S0179; U0003; U0005